=== PATIENT | male | born 1940 | race Caucasian/White ===

== ENCOUNTER 2019-05-02 16:29 | Inpatient (IN) | payer OTHER, MEDICAID ==
[~2019-05-02] VITALS: Ht 165.1 cm; Wt 62.1 kg
[~2019-05-02 16:29] MED LIST: ACET500T98 PO; AMOX1TAB10 PO; BACL10TA PO; BENA5TAB33 PO; CALC-143 PO; FAMO20TA18 PO; IRBE150T21 PO; METF-849 PO; TERA1CAP3 PO; UDMYL PO
[2019-05-02 16:46] VITALS: Ht 165.1 cm; Wt 62.1 kg
[2019-05-02] MEDS ORDERED: morphine 2 MG INJ IV STA (19:01)
[2019-05-02] MEDS ORDERED: SOD CHLORIDE 0.9% 500 ML IV STA (20:30)
[2019-05-02] MEDS ORDERED: CIPROFLOXACIN 400MG/D5W 200 ML IVPB STA (20:30)
[2019-05-02] MEDS ORDERED: metroNIDAZOLE 500 MG/NS (PMX) 100 ML IVPB STA (20:30)
[2019-05-02] MEDS ORDERED: ACETAMINOPHEN 325 MG TAB PO PRN (21:30)
[2019-05-02] MEDS ORDERED: ONDANSETRON 4 MG INJ IV PRN (21:30)
[2019-05-03] VITALS: BP 112/62; PULSE 68; RESP 17
[2019-05-03] MEDS ORDERED: GLUCOSE GEL 15 GRAM TUBE PO PRN ×2 (01:00)
[2019-05-03] MEDS ORDERED: GLUCAGON 1 MG INJ IM PRN (01:00)
[2019-05-03] MEDS ORDERED: GLUCOSE GEL 15 GRAM TUBE BUCCAL PRN (01:00)
[2019-05-03] MEDS ORDERED: DEXTROSE 50% 50 ML SYRINGE IV PRN ×2 (01:00)
[2019-05-03] MEDS: ACCU-CHEK XX SCH (02:00)
[2019-05-03] MEDS ORDERED: ONDANSETRON 4 MG INJ IV PRN (02:30)
[2019-05-03] MEDS ORDERED: ALBUTEROL/IPRATROPIUM (NEB) 3 ML AMP HHN PRN (02:30)
[2019-05-03] MEDS ORDERED: NACL 0.9% 3 ML SYG IV SCH (02:30)
[2019-05-03] MEDS: DEXTROSE 5%-0.45% NACL 1,000 ML IV SCH ×3 (02:37→17:47)
[2019-05-03] MEDS: morphine 2 MG INJ IV PRN ×3 (04:02→16:21)
[2019-05-03] MEDS: PIPER-TAZO 3.375 GM IV (PMX) 100 ML IVPB SCH ×3 (06:31→17:47)
[2019-05-03 07:49] VITALS: BP 121/67; PULSE 72; RESP 18
[2019-05-03] MEDS ORDERED: INSULIN ASPART [NOVOLOG] 3 ML PEN SC SCH (07:50)
[2019-05-03] MEDS ORDERED: FAMOTIDINE 20 MG INJ IV SCH (09:00)
[2019-05-03] MEDS: INSULIN ASPART [NOVOLOG] 3 ML PEN SC SCH ×4 (09:00→21:00)
[2019-05-03] MEDS ORDERED: hydrALAzine 20 MG INJ IV PRN (11:00)
[2019-05-03] MEDS ORDERED: ACETAMINOPHEN 325 MG TAB PO PRN (11:30)
[2019-05-03] MEDS: BENAZEPRIL 5 MG TAB PO SCH (13:00)
[2019-05-03 19:50] VITALS: BP 110/55; PULSE 60; RESP 16
[2019-05-03] MEDS: FAMOTIDINE 20 MG TAB PO SCH (21:37)
[2019-05-03] MEDS: TERAZOSIN 2 MG CAP PO SCH (21:38)
[2019-05-04] MEDS: PIPER-TAZO 3.375 GM IV (PMX) 100 ML IVPB SCH ×5 (00:32→23:44)
[2019-05-04] MEDS: INSULIN ASPART [NOVOLOG] 3 ML PEN SC SCH ×6 (01:00→21:00)
[2019-05-04] MEDS: ACCU-CHEK XX SCH (01:34)
[2019-05-04 01:39] VITALS: BP 99/53; RESP 17
[2019-05-04] MEDS: morphine 2 MG INJ IV PRN ×2 (05:12→20:33)
[2019-05-04 07:51] VITALS: BP 102/55; PULSE 53; RESP 14
[2019-05-04] MEDS: BENAZEPRIL 5 MG TAB PO SCH (09:00)
[2019-05-04 14:48] VITALS: BP 115/63; PULSE 83; RESP 18
[2019-05-04] MEDS: DEXTROSE 5%-0.45% NACL 1,000 ML IV SCH (16:52)
[2019-05-04 20:03] VITALS: BP 110/59; PULSE 65; RESP 20
[2019-05-04] MEDS: FAMOTIDINE 20 MG TAB PO SCH (20:33)
[2019-05-04] MEDS: TERAZOSIN 2 MG CAP PO SCH (20:34)
[2019-05-04] MEDS: CALCIUM/VITAMIN D (500/200) TAB PO SCH (21:00)
[2019-05-05] MEDS: INSULIN ASPART [NOVOLOG] 3 ML PEN SC SCH (01:00)
[2019-05-05] MEDS: ACCU-CHEK XX SCH (02:00)
[2019-05-05 02:24] VITALS: BP 109/55; PULSE 60; RESP 19
[2019-05-05] MEDS: DEXTROSE 5%-0.45% NACL 1,000 ML IV SCH (06:21)
[2019-05-05] MEDS: PIPER-TAZO 3.375 GM IV (PMX) 100 ML IVPB SCH (06:21)
[2019-05-05 07:39] VITALS: BP 101/56; PULSE 62; RESP 14
[2019-05-05] MEDS ORDERED: INSULIN ASPART [NOVOLOG] 3 ML PEN SC SCH (07:50)
[2019-05-05] MEDS: BENAZEPRIL 5 MG TAB PO SCH (08:14)
[2019-05-05] MEDS: CALCIUM/VITAMIN D (500/200) TAB PO SCH (08:15)
== END 2019-05-05 12:00 | disposition home or self-care (01) | DRG 872 ==
LOC: E/R 16:29 → MS1 21:21
PROVIDERS: ADMIT Internal Medicine; ATTEND Family Medicine
DX: A41.9 Sepsis, unspecified organism (principal); K57.32 Diverticulitis of large intestine without perforation or abscess without bleeding; K40.00 Bilateral inguinal hernia, with obstruction, without gangrene, not specified as recurrent; N40.0 Benign prostatic hyperplasia without lower urinary tract symptoms; E78.5 Hyperlipidemia, unspecified; I10 Essential (primary) hypertension; E11.9 Type 2 diabetes mellitus without complications; D64.9 Anemia, unspecified; E88.09 Other disorders of plasma-protein metabolism, not elsewhere classified; E83.51 Hypocalcemia; Z87.891 Personal history of nicotine dependence
CPT/HCPCS: 36415; 74176; 80048; 80053; 81001; 82962; 83735; 84100; 85025; 96365; 96375; J0744; J1815; J2270; J2405; J2543; J7040; J7042